=== PATIENT | female | born 1940 | race Two or more races ===

== ENCOUNTER 2023-03-09 15:10 | Inpatient (IN) | payer MEDICARE, OTHER ==
[~2023-03-09] VITALS: Ht 167.6 cm; Wt 68.9 kg
[2023-03-09 15:43] LABS: BASOPHILS # (AUTO) 0.1 K/uL (0.0-0.2); EOSINOPHILS # (AUTO) 0.5 K/uL (0.0-0.7); EOSINOPHILS % (AUTO) 7.1 % (0.0-6.0); HEMATOCRIT 40 % (33-45); HEMOGLOBIN 12.9 g/dL (11.5-14.8); LYMPHOCYTES # (AUTO) 1.6 K/uL (0.8-4.8); LYMPHOCYTES % (AUTO) 22.3 % (20.0-44.0); MEAN CORPUSCULAR HEMOGLOBIN 27 PG (26.0-33.0); MEAN CORPUSCULAR HGB CONC 32 g/dl (31.0-36.0); MEAN CORPUSCULAR VOLUME 84 fL (82-100); MONOCYTES # (AUTO) 0.6 K/uL (0.1-1.30); MONOCYTES % (AUTO) 8.7 % (2.0-12.0); NEUTROPHILS # (AUTO) 4.5 K/uL (1.8-8.9); NEUTROPHILS % (AUTO) 60.9 % (43.0-81.0); PLATELET COUNT (AUTO) 321 K/uL (150-450); RED BLOOD CELL COUNT(AUTO) 4.78 MIL/uL (4.0-5.2); RED CELL DISTRIBUTION WIDTH 15.1 % (11.5-15.0); WHITE BLOOD COUNT (AUTO) 7.4 K/uL (4.3-11.0)
[2023-03-09] MEDS ORDERED: ESCI5TAB PO (15:48)
[2023-03-09] MEDS ORDERED: OMEG1CAP PO (15:48)
[2023-03-09] MEDS ORDERED: AMLO-213 PO (15:48)
[2023-03-09] MEDS ORDERED: METO25TA20 PO (15:48)
[2023-03-09] MEDS ORDERED: POLY15DR40 EACHEYE (15:48)
[2023-03-09] MEDS ORDERED: ASPI-1169 PO (15:48)
[2023-03-09] MEDS ORDERED: CHOL100043 PO (15:48)
[2023-03-09] MEDS ORDERED: LEVE250T2 PO (15:48)
[2023-03-09] MEDS ORDERED: ACET-868 PO (15:48)
[2023-03-09] MEDS ORDERED: CALC500T52 PO (15:48)
[2023-03-09] MEDS ORDERED: NAPH1POW3 PO (15:48)
[2023-03-09 16:00] LABS: CALCIUM, SERUM 9.1 mg/dL (8.5-10.1); CARBON DIOXIDE 28 mmol/L (21-32); CHLORIDE 99 mmol/L (98-107); CREATININE 0.8 mg/dL (0.6-1.3); GLUCOSE 107 mg/dL (74-106); POTASSIUM 4.5 mmol/L (3.5-5.1); SODIUM SERUM 132 mmol/L (136-145); UREA NITROGEN, BLOOD 19 mg/dL (7-18)
[2023-03-09 16:10] LABS: APPEARANCE,URINE CLEAR (CLEAR); BILIRUBIN,URINE NEGATIVE (NEGATIVE); BLOOD, URINE NEGATIVE Ery/uL (NEGATIVE); COLOR,URINE YELLOW (YELLOW); KETONES,URINE NEGATIVE (NEGATIVE); LEUKOCYTE ESTERASE ,URINE NEGATIVE (NEGATIVE); NITRITE, URINE NEGATIVE (NEGATIVE); PROTEIN,URINE NEGATIVE (NEGATIVE); UGLUCOSE NEGATIVE (NEGATIVE); UROBILINOGEN,URINE 0.2 EU/dL (0.2)
[2023-03-09] MEDS ORDERED: MAGNESIUM HYDROXIDE 30 ML UDC PO PRN (17:30)
[2023-03-09] MEDS ORDERED: ONDANSETRON HCL/PF 4 MG/2 ML VIAL IVP PRN (17:30)
[2023-03-09] MEDS ORDERED: Z GUARD REMEDY 4 OZ OINT TP PRN (17:30)
[2023-03-09] MEDS ORDERED: ACETAMINOPHEN 325 MG TABLET PO PRN (17:30)
[2023-03-09 20:00] VITALS: BP 118/70; TEMP 98.1; O2SAT 96
[2023-03-09 20:30] VITALS: BP 118/70; TEMP 98.1; O2SAT 96
[2023-03-09] MEDS: ENOXAPARIN SODIUM 40 MG/0.4 ML DISP.SYRIN SQ SCH (21:18)
[2023-03-09] MEDS: IV NS 0.9% 1,000 ML IV PRN (21:22)
[2023-03-10 06:57] LABS: BASOPHILS # (AUTO) 0.1 K/uL (0.0-0.2); BASOPHILS % (AUTO) 0.7 % (0.0-2.0); EOSINOPHILS # (AUTO) 0.5 K/uL (0.0-0.7); EOSINOPHILS % (AUTO) 5.8 % (0.0-6.0); HEMATOCRIT 41 % (33-45); HEMOGLOBIN 13.3 g/dL (11.5-14.8); LYMPHOCYTES # (AUTO) 1.8 K/uL (0.8-4.8); LYMPHOCYTES % (AUTO) 21.5 % (20.0-44.0); MEAN CORPUSCULAR HEMOGLOBIN 27 PG (26.0-33.0); MEAN CORPUSCULAR HGB CONC 32 g/dl (31.0-36.0); MEAN CORPUSCULAR VOLUME 84 fL (82-100); MONOCYTES # (AUTO) 0.7 K/uL (0.1-1.30); MONOCYTES % (AUTO) 8.9 % (2.0-12.0); NEUTROPHILS # (AUTO) 5.3 K/uL (1.8-8.9); NEUTROPHILS % (AUTO) 63.1 % (43.0-81.0); PLATELET COUNT (AUTO) 321 K/uL (150-450); RED BLOOD CELL COUNT(AUTO) 4.93 MIL/uL (4.0-5.2); RED CELL DISTRIBUTION WIDTH 14.6 % (11.5-15.0); WHITE BLOOD COUNT (AUTO) 8.4 K/uL (4.3-11.0)
[2023-03-10 07:00] VITALS: BP 110/62; TEMP 97.7; O2SAT 98
[2023-03-10 07:28] LABS: CALCIUM, SERUM 9.5 mg/dL (8.5-10.1); CREATININE 0.8 mg/dL (0.6-1.3); MAGNESIUM 2.2 mg/dL (1.8-2.4); PHOSPHORUS 3.1 mg/dL (2.5-4.9); POTASSIUM 3.9 mmol/L (3.5-5.1)
[2023-03-10 08:02] LABS: THYROID STIMULATING HORMONE 1.868 uIU/mL (0.358-3.74)
[2023-03-10] MEDS: LEVETIRACETAM (250 MG) 250 MG TABLET PO SCH ×2 (10:43→16:59)
[2023-03-10] MEDS: MEGESTROL ACETATE 40 MG TABLET PO SCH ×2 (11:12→16:59)
[2023-03-10 13:00] VITALS: BP 91/44; TEMP 97.6; O2SAT 96
[2023-03-10] MEDS: POLYVINYL ALCOHOL 15 ML BOTTLE EACHEYE SCH ×2 (13:14→17:01)
[2023-03-10] MEDS: IV NS 0.9% 1,000 ML IV PRN (15:08)
[2023-03-10 16:00] VITALS: BP 91/44; TEMP 97.6; O2SAT 96
[2023-03-10] MEDS: METOPROLOL TARTRATE 25 MG TABLET PO SCH (17:00)
[2023-03-10 20:00] VITALS: BP 109/54; TEMP 97.9; O2SAT 95
[2023-03-10] MEDS: ENOXAPARIN SODIUM 40 MG/0.4 ML DISP.SYRIN SQ SCH (21:45)
[2023-03-10] MEDS ORDERED: VANCOMYCIN 1.25 GM in IV D5W 250 ML IV ONE (22:00)
[2023-03-10] MEDS ORDERED: CEFEPIME 1 GM VIAL ONE (23:08)
[2023-03-10] MEDS ORDERED: VANCOMYCIN 1 GM /D5W 250 ML PB IV ONE (23:35)
[2023-03-11] MEDS: CEFEPIME 2 GM in IV D5W 100 ML IV SCH ×3 (00:08→22:24)
[2023-03-11] MEDS: IV NS 0.9% 1,000 ML IV PRN ×2 (05:33→19:43)
[2023-03-11 06:23] LABS: BASOPHILS # (AUTO) 0.1 K/uL (0.0-0.2); BASOPHILS % (AUTO) 0.4 % (0.0-2.0); EOSINOPHILS # (AUTO) 0.2 K/uL (0.0-0.7); EOSINOPHILS % (AUTO) 1.4 % (0.0-6.0); HEMATOCRIT 38 % (33-45); HEMOGLOBIN 12.4 g/dL (11.5-14.8); LYMPHOCYTES # (AUTO) 1.7 K/uL (0.8-4.8); LYMPHOCYTES % (AUTO) 12.7 % (20.0-44.0); MEAN CORPUSCULAR HEMOGLOBIN 27 PG (26.0-33.0); MEAN CORPUSCULAR HGB CONC 32 g/dl (31.0-36.0); MEAN CORPUSCULAR VOLUME 84 fL (82-100); MONOCYTES # (AUTO) 1.4 K/uL (0.1-1.30); MONOCYTES % (AUTO) 10.3 % (2.0-12.0); NEUTROPHILS # (AUTO) 10.2 K/uL (1.8-8.9); NEUTROPHILS % (AUTO) 75.2 % (43.0-81.0); PLATELET COUNT (AUTO) 302 K/uL (150-450); RED BLOOD CELL COUNT(AUTO) 4.58 MIL/uL (4.0-5.2); RED CELL DISTRIBUTION WIDTH 14.4 % (11.5-15.0); WHITE BLOOD COUNT (AUTO) 13.6 K/uL (4.3-11.0)
[2023-03-11 06:47] LABS: CALCIUM, SERUM 9.1 mg/dL (8.5-10.1); CARBON DIOXIDE 26 mmol/L (21-32); CHLORIDE 103 mmol/L (98-107); CREATININE 0.8 mg/dL (0.6-1.3); GLUCOSE 86 mg/dL (74-106); PHOSPHORUS 2.8 mg/dL (2.5-4.9); POTASSIUM 4.1 mmol/L (3.5-5.1); SODIUM SERUM 133 mmol/L (136-145); UREA NITROGEN, BLOOD 12 mg/dL (7-18)
[2023-03-11 08:00] VITALS: BP 121/79; TEMP 97.5; O2SAT 92
[2023-03-11] MEDS: MEGESTROL ACETATE 40 MG TABLET PO SCH ×2 (08:48→16:19)
[2023-03-11] MEDS: LEVETIRACETAM (250 MG) 250 MG TABLET PO SCH ×2 (08:48→16:19)
[2023-03-11] MEDS: CHOLECALCIFEROL 1,000 UNIT TABLET (VIT D3) PO SCH (08:48)
[2023-03-11] MEDS: METOPROLOL TARTRATE 25 MG TABLET PO SCH ×2 (08:49→16:20)
[2023-03-11] MEDS: ASPIRIN 81 MG TAB.CHEW PO SCH (08:50)
[2023-03-11] MEDS: ESCITALOPRAM OXALATE (10 MG) 10 MG TABLET PO SCH (08:50)
[2023-03-11] MEDS ORDERED: Medication Not On Formulary EA (Omega-3 Fatty Acids/Fish Oil (Fish Oil 1,000 Mg Capsule) PO SCH (09:00)
[2023-03-11] MEDS: POLYVINYL ALCOHOL 15 ML BOTTLE EACHEYE SCH ×3 (09:07→16:03)
[2023-03-11 16:00] VITALS: BP 102/62; TEMP 100.2; O2SAT 94
[2023-03-11 20:00] VITALS: BP 104/62; TEMP 99.4; O2SAT 94
[2023-03-11] MEDS: ENOXAPARIN SODIUM 40 MG/0.4 ML DISP.SYRIN SQ SCH (21:43)
[2023-03-11] MEDS ORDERED: VANCOMYCIN 1.25 GM in IV D5W 250 ML IV SCH (22:00)
[2023-03-12 06:28] LABS: BASOPHILS # (AUTO) 0.1 K/uL (0.0-0.2); BASOPHILS % (AUTO) 0.6 % (0.0-2.0); EOSINOPHILS # (AUTO) 0.4 K/uL (0.0-0.7); EOSINOPHILS % (AUTO) 3.3 % (0.0-6.0); HEMATOCRIT 35 % (33-45); HEMOGLOBIN 11.4 g/dL (11.5-14.8); LYMPHOCYTES # (AUTO) 1.4 K/uL (0.8-4.8); MEAN CORPUSCULAR HEMOGLOBIN 27 PG (26.0-33.0); MEAN CORPUSCULAR HGB CONC 33 g/dl (31.0-36.0); MEAN CORPUSCULAR VOLUME 83 fL (82-100); MONOCYTES # (AUTO) 1.2 K/uL (0.1-1.30); MONOCYTES % (AUTO) 11.2 % (2.0-12.0); NEUTROPHILS # (AUTO) 7.7 K/uL (1.8-8.9); NEUTROPHILS % (AUTO) 71.9 % (43.0-81.0); PLATELET COUNT (AUTO) 283 K/uL (150-450); RED BLOOD CELL COUNT(AUTO) 4.15 MIL/uL (4.0-5.2); RED CELL DISTRIBUTION WIDTH 14.6 % (11.5-15.0); WHITE BLOOD COUNT (AUTO) 10.7 K/uL (4.3-11.0)
[2023-03-12 06:58] LABS: CREATININE 0.7 mg/dL (0.6-1.3); MAGNESIUM 1.9 mg/dL (1.8-2.4); PHOSPHORUS 2.2 mg/dL (2.5-4.9); POTASSIUM 3.5 mmol/L (3.5-5.1)
[2023-03-12 07:00] VITALS: BP 112/52; TEMP 98.4; O2SAT 97
[2023-03-12] MEDS: LEVETIRACETAM (250 MG) 250 MG TABLET PO SCH (08:43)
[2023-03-12] MEDS: CHOLECALCIFEROL 1,000 UNIT TABLET (VIT D3) PO SCH (08:43)
[2023-03-12] MEDS: MEGESTROL ACETATE 40 MG TABLET PO SCH (08:43)
[2023-03-12] MEDS: POLYVINYL ALCOHOL 15 ML BOTTLE EACHEYE SCH (08:43)
[2023-03-12] MEDS: ESCITALOPRAM OXALATE (10 MG) 10 MG TABLET PO SCH (08:43)
[2023-03-12] MEDS: ASPIRIN 81 MG TAB.CHEW PO SCH (08:44)
[2023-03-12] MEDS: METOPROLOL TARTRATE 25 MG TABLET PO SCH ×2 (08:52→09:16)
[2023-03-12] MEDS: CEFEPIME 2 GM in IV D5W 100 ML IV SCH (09:01)
[2023-03-12 09:16] VITALS: BP 112/52
[2023-03-12] MEDS ORDERED: NEUTRA PHOS 1 POWD.PACKET PO ONE (11:00)
== END 2023-03-12 13:59 | DRG 640 ==
LOC: ER 15:25 → MED 19:45
PROVIDERS: ADMIT Nurse Practitioner Family; ATTEND Internal Medicine
DX: R62.7 Adult failure to thrive (principal); G93.41 Metabolic encephalopathy; I69.354 Hemiplegia and hemiparesis following cerebral infarction affecting left non-dominant side; E87.1 Hypo-osmolality and hyponatremia; F03.94 Unspecified dementia, unspecified severity, with anxiety; F03.93 Unspecified dementia, unspecified severity, with mood disturbance; E86.0 Dehydration; N18.9 Chronic kidney disease, unspecified; F03.90 Unspecified dementia, unspecified severity, without behavioral disturbance, psychotic disturbance, mood disturbance, and anxiety; Z20.822 Contact with and (suspected) exposure to COVID-19; I12.9 Hypertensive chronic kidney disease with stage 1 through stage 4 chronic kidney disease, or unspecified chronic kidney disease; K21.9 Gastro-esophageal reflux disease without esophagitis; R13.10 Dysphagia, unspecified; M19.90 Unspecified osteoarthritis, unspecified site; M48.02 Spinal stenosis, cervical region; M06.4 Inflammatory polyarthropathy; F32.A Depression, unspecified; E78.5 Hyperlipidemia, unspecified; E86.1 Hypovolemia; Z88.5 Allergy status to narcotic agent; Z88.8 Allergy status to other drugs, medicaments and biological substances; Z79.82 Long term (current) use of aspirin; Z79.899 Other long term (current) drug therapy; R79.89 Other specified abnormal findings of blood chemistry; G89.29 Other chronic pain; G40.909 Epilepsy, unspecified, not intractable, without status epilepticus; Z96.641 Presence of right artificial hip joint; F41.9 Anxiety disorder, unspecified
CPT/HCPCS: 36415; 71045-TC; 80048-TC; 80061-TC; 83735-TC; 84100-TC; 84443-TC; 85025-TC; 87040-TC; 87081-TC; 97110-TC; 97112-TC; 97530-TC; A4223; G0378; J0692; J1650; J3370; J7030; J7060